=== PATIENT | male | born 1965 | race Caucasian/White ===

== ENCOUNTER 2020-09-22 12:55 | Emergency (ER) | payer OTHER ==
[2020-09-22] MEDS ORDERED: IBU800 MG PO (14:25)
== END 2020-09-22 15:14 | disposition home or self-care (01) ==
LOC: ER1 12:55
DX: S76.121A Laceration of right quadriceps muscle, fascia and tendon, initial encounter (principal); W00.0XXA Fall on same level due to ice and snow, initial encounter
CPT/HCPCS: 29530; 73564; 99283

== ENCOUNTER 2020-09-26 08:49 | Day surgery (SDC) | payer OTHER ==
[~2020-09-26] VITALS: Ht 177.8 cm; Wt 96.2 kg
[~2020-09-26 08:49] MED LIST: IBU800 MG PO
[2020-09-26 09:26] LABS: HEMOGLOBIN 15.9 gm/dl (14.0-17.5); RED BLOOD COUNT 5.35 M/UL (4.20-5.50); WHITE BLOOD COUNT 8.9 K/UL (4.5-11.0)
[2020-09-26 09:52] LABS: BUN/CREATININE RATIO 17 (0-10)
[2020-09-26] MEDS ORDERED: ZOLOFT100 MG PO (10:11)
[2020-09-26] MEDS ORDERED: HYDROCODON-ACE1 EAC6 PO (17:59)
[2020-09-27] MEDS ORDERED: ASPIRIN 325MG325 MG PO (13:25)
== END 2020-09-27 13:52 | disposition home or self-care (01) ==
LOC: OR 08:49 → M/S 20:34 → OR 09-27 13:52
PROVIDERS: Orthopaedic Surgery
PROC: 3E0T3BZ Introduction of Anesthetic Agent into Peripheral Nerves and Plexi, Percutaneous Approach (ICD-10-PCS; 2020-09-26)
PROC: 0LQQ0ZZ Repair Right Knee Tendon, Open Approach (ICD-10-PCS; principal; 2020-09-26 15:30)
DX: S76.111A Strain of right quadriceps muscle, fascia and tendon, initial encounter (principal); F32.9 Major depressive disorder, single episode, unspecified; G89.18 Other acute postprocedural pain; E66.9 Obesity, unspecified; Z68.29 Body mass index [BMI] 29.0-29.9, adult; Z79.899 Other long term (current) drug therapy; Z20.822 Contact with and (suspected) exposure to COVID-19; W00.0XXA Fall on same level due to ice and snow, initial encounter; Y92.019 Unspecified place in single-family (private) house as the place of occurrence of the external cause
CPT/HCPCS: 36415; 71045; 80048; 85027; 93005; C1713; J0592; J0690; J1100; J1170; J2001; J2405; J2704; J2795; J3010; J7120

== ENCOUNTER 2020-10-19 08:23 | Day surgery (SDC) | payer OTHER ==
[~2020-10-19] VITALS: Ht 177.8 cm; Wt 96.2 kg
[~2020-10-19 08:23] MED LIST changes: +ASPIRIN 325MG325 MG PO; +HYDROCODON-ACE1 EAC6 PO; +ZOLOFT100 MG PO
[2020-10-19 08:50] LABS: RED BLOOD COUNT 5.13 M/UL (4.20-5.50); WHITE BLOOD COUNT 6.2 K/UL (4.5-11.0)
[2020-10-19 09:07] LABS: BUN/CREATININE RATIO 21 (0-10)
[2020-10-19] MEDS ORDERED: HYDROCODON-ACE1 EAC6 PO (10:42)
== END 2020-10-20 11:07 | disposition home or self-care (01) ==
LOC: OR 08:23 → M/S 14:05 → OR 10-20 11:07
PROVIDERS: Orthopaedic Surgery
PROC: 3E0T3BZ Introduction of Anesthetic Agent into Peripheral Nerves and Plexi, Percutaneous Approach (ICD-10-PCS; 2020-10-19)
PROC: 0LQQ0ZZ Repair Right Knee Tendon, Open Approach (ICD-10-PCS; principal; 2020-10-19 12:00)
DX: S76.111A Strain of right quadriceps muscle, fascia and tendon, initial encounter (principal); G89.18 Other acute postprocedural pain; E66.9 Obesity, unspecified; Z68.30 Body mass index [BMI] 30.0-30.9, adult; Z20.822 Contact with and (suspected) exposure to COVID-19; Z79.899 Other long term (current) drug therapy; W00.0XXA Fall on same level due to ice and snow, initial encounter; Y92.019 Unspecified place in single-family (private) house as the place of occurrence of the external cause
CPT/HCPCS: 0; 36415; 71045; 76000; 80048; 85027; 93005; 97116-GP-CQ; 97161; 97166; C1713; J0171; J0690; J1100; J1170; J2001; J2250; J2405; J2704; J2795; J3010; J7120